=== PATIENT | male | born 1985 | race African-American/Black ===

== ENCOUNTER 2017-01-09 12:56 | Emergency (ER) | payer OTHER ==
[~2017-01-09] VITALS: Ht 172.7 cm; Wt 86.2 kg
[2017-01-09] MEDS ORDERED: EYE-STREAM OPHTH SOLUTION 120 ML BOTTLE. OD ONE (13:30)
[2017-01-09] MEDS ORDERED: TETRACAINE 0.5% OPHTH SOLUTION 4ML BOTTLE. OD ONE (13:30)
[2017-01-09] MEDS ORDERED: FLUORESCEIN OPHTH TEST STRIP. OD ONE (13:30)
[2017-01-09 13:33] VITALS: BP 116/57
[2017-01-09] MEDS ORDERED: OFLO5DRO4 OD (13:38)
--- NOTE | 2017-01-09 13:39 | PHYS DOC ---
Past Medical History Past Medical History: Seizure, Unknown Additional Past Medical Histor: blind in the right eye Past Surgical History: Other Additional Past Surgical Histo: PT IS UNABLE TO RESPOND Adult General Chief Complaint Chief Complaint: FOREIGN BODY/EYES HPI HPI Patient is a 31 year old male sitting emergency department stating that for the last 4-5 days he felt as though he has something in his right eye. He states that he's been rubbing it in has had no foreign body removed from what he knows. 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 He states it was a breast affect. Patient does have haziness noted over the lower part of the eye. Patient states that he normally puts drops in the home. Patient notes unsure of his last tetanus immunization. Review of Systems Review of Systems Constitutional: Denies fever or chills [] Eyes: Denies change in visual acuity, redness, C/o right eye pain HENT: Denies nasal congestion or sore throat [] Respiratory: Denies cough or shortness of breath [] Cardiovascular: No additional information not addressed in HPI [] GI: Denies abdominal pain, nausea, vomiting, bloody stools or diarrhea [] : Denies dysuria or hematuria [] Musculoskeletal: Denies back pain or joint pain [] Integument: Denies rash or skin lesions [] Neurologic: Denies headache, focal weakness or sensory changes [] Endocrine: Denies polyuria or polydipsia [] Current Medications Current Medications Current Medications Medications (Trade) Dose Ordered Sig/Reza Start Time Stop Time Status Last Admin Dose Admin Balanced Salt Solution (Eye-Stream) 120 ml 1X ONCE 01/09/17 13:30 01/09/17 13:31 DC 01/09/17 13:29 120 ML Fluorescein Sodium (Ful-Sindhu) 1 strip 1X ONCE 01/09/17 13:30 01/09/17 13:31 DC 01/09/17 13:29 1 STRIP Tetracaine HCl (Tetracaine) 1 drop 1X ONCE 01/09/17 13:30 01/09/17 13:31 DC 01/09/17 13:29 1 DROP Allergies Allergies Allergies Coded Allergies Type Severity Reaction Last Updated Verified No Known Drug Allergies 10/10/15 No Physical Exam Physical Exam Constitutional: Well developed, well nourished, no acute distress, non-toxic appearance. [] HENT: Normocephalic, atraumatic, bilateral external ears normal, oropharynx moist, no oral exudates, nose normal. [] Eyes: Right eye appears to have fluffiness around the lower part of the eye. Unable to visualize the pupil. Patient with redness noted in the conjunctivae no drainage or discharge noted from the eye. Neck: Normal range of motion, no tenderness, supple, no stridor. [] Cardiovascular:Heart rate regular rhythm, no murmur [] Lungs & Thorax: Bilateral breath sounds clear to auscultation [] Skin: Warm, dry, no erythema, no rash. [] Back: No tenderness Extremities: No tenderness, no cyanosis, no clubbing, ROM intact, no edema. [] Neurologic: Alert and oriented X 3, normal motor function, normal sensory function, no focal deficits noted. [] Psychologic: Affect normal, judgement normal, mood normal. [] EKG EKG [] Radiology/Procedures Radiology/Procedures [] Course & Med Decision Making Course & Med Decision Making Pertinent Labs and Imaging studies reviewed. (See chart for details) Tetracaine was placed in the right eye, with fluorescein uptake noted at the 1: 00 area. Patient will be placed on ofloxacin. Patient will be encouraged to follow-up with ophthalmology on Tuesday. Signs and symptoms to return back to emergency department been provided. Recommended Tylenol or ibuprofen for pain and discomfort. Patient agrees with discharge instructions treatment regimens and follow-up recommendations. [] Dragon Disclaimer Dragon Disclaimer This electronic medical record was generated, in whole or in part, using a voice recognition dictation system. Departure Departure Impression: Primary Impression: Corneal abrasion, right Disposition: HOME, SELF-CARE Condition: STABLE Referrals: NO PCP (PCP) RADHA PIÑA MD Patient Instructions: Eye - Corneal Abrasion, [id number] Additional Instructions: Your being treated for corneal abrasion on your right eye. Medication as prescribed. Tylenol or ibuprofen for pain and discomfort. Warm moist packs to the right eye as needed. 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 Return back to emergency prior signs symptoms of become worse. Scripts Ofloxacin (OFLOXACIN) 10 Ml Drops 1 DROP OD QID, #5 ML Prov: ANNAMARIA JIN APRN 01/09/17 ANNAMARIA JIN APRN January 09, 2017 13:38
[2017-01-09] MEDS ORDERED: DIPHTH,PERTUSS(ACELL),TET TOX 0.5 ML DISP.SYRIN. VAX IM ONE (13:45)
== END 2017-01-09 13:49 | disposition home or self-care (01) ==
LOC: ER 12:56
DX: S05.01XA Injury of conjunctiva and corneal abrasion without foreign body, right eye, initial encounter (principal); H54.8 Legal blindness, as defined in USA; X58.XXXA Exposure to other specified factors, initial encounter; Y93.89 Activity, other specified; Y92.89 Other specified places as the place of occurrence of the external cause; Y99.8 Other external cause status
CPT/HCPCS: 90471; 90715; 99284-25

== ENCOUNTER 2018-06-03 21:47 | Emergency (ER) | payer SELFPAY ==
[~2018-06-03] VITALS: Ht 172.7 cm; Wt 86.2 kg
[~2018-06-03 21:47] MED LIST: OFLO5DRO4 OD
[2018-06-03] MEDS ORDERED: HYDROcodone/APAP 5/325MG 1 TAB TABLET PO ONE (22:15)
[2018-06-03] MEDS ORDERED: CYCLOBENZAPRINE 10 MG TABLET. PO ONE (22:15)
[2018-06-03] MEDS ORDERED: NAPROXEN 500 MG TABLET PO ONE (22:15)
[2018-06-03] MEDS ORDERED: CYCL10TA2 PO (23:00)
[2018-06-03] MEDS ORDERED: DICL50TA4 PO (23:00)
--- NOTE | 2018-06-03 23:00 | PHYS DOC ---
Past Medical History Past Medical History: Seizure, Unknown Additional Past Medical Histor: blind in the right eye Past Surgical History: Other Additional Past Surgical Histo: ABD Alcohol Use: Occasionally Drug Use: None Adult General Chief Complaint Chief Complaint: SHOULDER INJURY HPI HPI Patient is a 32 year old male who presents today complaining of 9 out of 10 left shoulder pain that began a week ago after he fell on his shoulder during a seizure. Patient denies any loss of consciousness. He states he has history of seizures and is on medications. Patient appears drunk and intoxicated. He has been asleep most of the time in the ED. Review of Systems Review of Systems Constitutional: Denies fever or chills [] Musculoskeletal: Left shoulder pain Integument: Denies rash or skin lesions [] Neurologic: Denies headache, focal weakness or sensory changes [] All other systems were reviewed and found to be within normal limits, except as documented in this note. Current Medications Current Medications Current Medications Medications (Trade) Dose Ordered Sig/Reza Start Time Stop Time Status Last Admin Dose Admin Acetaminophen/ Hydrocodone Bitart (Lortab 5/325) 2 tab 1X ONCE 06/03/18 22:15 06/03/18 22:16 DC 06/03/18 22:20 2 TAB Cyclobenzaprine HCl (Flexeril) 10 mg 1X ONCE 06/03/18 22:15 06/03/18 22:16 DC 06/03/18 22:19 10 MG Naproxen (Naprosyn) 500 mg 1X ONCE 06/03/18 22:15 06/03/18 22:16 DC 06/03/18 22:20 500 MG Allergies Allergies Allergies Coded Allergies Type Severity Reaction Last Updated Verified No Known Drug Allergies 10/10/15 No Physical Exam Physical Exam Constitutional: Well developed, well nourished, no acute distress, non-toxic appearance. [] Skin: Warm, dry, no erythema, no rash. [] Back: No tenderness, no CVA tenderness. [] Extremities: Left shoulder with no obvious deformity. No tenderness on palpation of the left shoulder. Full active as well as passive range of motion to the left shoulder. Adequate radial, medial, or loss of sensation to the left upper extremity. +2 left radial pulse. Cap refill less than 2 seconds and left fingers. Neurologic: Alert and oriented X 3, normal motor function, normal sensory function, no focal deficits noted. [] Psychologic: Affect normal, judgement normal, mood normal. [] Current Patient Data Vital Signs Vital Signs Date Time Temp Pulse Resp B/P (MAP) Pulse Ox O2 Delivery O2 Flow Rate FiO2 06/03/18 22:20 16 98 Room Air 06/03/18 22:05 98.1 88 144/68 (93) 98.1 EKG EKG [] Radiology/Procedures Radiology/Procedures [] Course & Med Decision Making Course & Med Decision Making Pertinent Labs and Imaging studies reviewed. (See chart for details) This is a 32-year-old male patient presented to the ED today with left shoulder pain that began a week ago after he fell on his shoulder during a seizure. Left shoulder x-rays interpreted by Dr. Montiel is negative for any acute findings. Sling provided for comfort by the ED RN, neurovascular exam intact. Ice elevation encouraged. Diclofenac for pain and cyclobenzaprine. Follow-up with orthopedic doctor provided in one week. Staff Physician Addendum: I was working in the ER during the course of this patient's visit. I was available for consultation as needed, but I was not directly involved in the care of this patient. Dragon Disclaimer Dragon Disclaimer This electronic medical record was generated, in whole or in part, using a voice recognition dictation system. Departure Departure Impression: Primary Impression: Contusion of left shoulder Additional Impressions: Seizure Fall Disposition: HOME, SELF-CARE Condition: STABLE Referrals: NO PCP (PCP) FAHAD APPLE MD follow up in one week Patient Instructions: Contusion, [id number], Fall Prevention and Home Safety , Seizure, Adult Additional Instructions: You were evaluated in the emergency room for left shoulder contusion. Ice elevate the extremity. Take the prescribed pain medicine as needed for pain. Follow-up with the provided orthopedic doctor in one week or your own doctor if pain continues. Come back to the ED at any point symptoms worsen. Scripts Cyclobenzaprine Hcl (CYCLOBENZAPRINE HCL) 10 Mg Tablet 1 TAB PO TID, #30 TAB Prov: CONRADO CASTAÑEDA APRN 06/03/18 Diclofenac Sodium (DICLOFENAC SODIUM) 50 Mg Tablet. 1 TAB PO BID, #60 TAB 1 Refill Prov: CONRADO CASTAÑEDA APRN 06/03/18 Problem Qualifiers Primary Impression: Contusion of left shoulder Encounter type: initial encounter Qualified Codes: S40.012A - Contusion of left shoulder, initial encounter Additional Impressions: Fall Encounter type: initial encounter Qualified Codes: W19.XXXA - Unspecified fall, initial encounter CONRADO CASTAEÑDA APRN Jun 03, 2018 23:00 LINK MONTIEL MD Jun 03, 2018 23:23
[2018-06-03 23:12] VITALS: BP 140/66
--- NOTE | 2018-06-04 08:23 | RAD ---
SHOULDER 2+V LEFT (AP internal and external rotation, transscapular Y) INDICATION: Trauma, fall on shoulder COMPARISON: None. FINDINGS: No acute fracture or malalignment. The joint spaces are maintained. Bony mineralization is normal for the patient's age. No significant soft tissue abnormality. No radiopaque foreign body. IMPRESSION: No acute fracture or malalignment. Electronically signed by: Hua Barillas MD (06/04/2018 8:19 AM) [facility]
== END 2018-06-03 23:20 | disposition home or self-care (01) ==
LOC: ER 21:47
DX: S40.012A Contusion of left shoulder, initial encounter (principal); R56.9 Unspecified convulsions; W18.39XA Other fall on same level, initial encounter; Y93.89 Activity, other specified; Y92.89 Other specified places as the place of occurrence of the external cause; Y99.8 Other external cause status
CPT/HCPCS: 73030; 99284

== ENCOUNTER 2020-11-10 09:28 | Emergency (ER) | payer OTHER ==
[~2020-11-10] VITALS: Ht 172.7 cm; Wt 82.0 kg
[~2020-11-10 09:28] MED LIST changes: +CYCL10TA2 PO; +DICL50TA4 PO
[2020-11-10 09:35] VITALS: BP 125/76
--- NOTE | 2020-11-10 10:13 | ED.ADGEN ---
Past Medical History Past Medical History: Seizure, Unknown Additional Past Medical Histor: blind in the right eye Past Surgical History: Other Additional Past Surgical Histo: "ABDOMINAL SURGERY" Smoking Status: Current Every Day Smoker Alcohol Use: Occasionally Drug Use: None General Adult EDM: Chief Complaint: SEIZURE HPI: HPI: Patient is a 35-year-old male who presents to the emergency room after having a seizure at work. Patient states that he does not take his medications because he does not trust his medication. He cannot get on disability for his seizures so he started a new job today. He states he has a seizure about once a month. He denies any complaints. Patient would like to leave. Review of Systems: Review of Systems: Complete ROS is negative unless otherwise documented in HPI Allergies: Allergies: Allergies Coded Allergies Type Severity Reaction Last Updated Verified No Known Drug Allergies 10/10/15 No Physical Exam: PE: General: Awake, alert, NAD. Well Nourished, well hydrated. Cooperative HEENT: Atraumatic, airway patent, moist oral mucosa Neck: Supple, trachea midline Respiratory: CTA bilaterally, normal effort, no wheezing/crackles CV: RRR, no murmur, cap refill <2 GI: Soft, nondistended, nontender, no masses MSK: No obvious deformities Skin: Warm, dry, intact Neuro: A&O x3, speech NL, 5/5 strength in BUE/BLE distally and proximally, CN 2- 12 intact, cerebellar testing normal Psych: Normal affect, normal mood, not suicidal or homicidal Current Patient Data: Vital Signs: Vital Signs Date Time Temp Pulse Resp B/P (MAP) Pulse Ox O2 Delivery O2 Flow Rate FiO2 11/10/20 09:35 98.2 86 18 125/76 (92) 96 Room Air 98.2 EKG: EKG: [] Heart Score: C/O Chest Pain: N/A Risk Factors: Risk Factors: DM, Current or recent (<one month) smoker, HTN, HLP, family history of CAD, obesity. Risk Scores: Score 0 - 3: 2.5% MACE over next 6 weeks - Discharge Home Score 4 - 6: 20.3% MACE over next 6 weeks - Admit for Clinical Observation Score 7 - 10: 72.7% MACE over next 6 weeks - Early Invasive Strategies Radiology/Procedures: Radiology/Procedures: [] Course & Med Decision Making: Course & Med Decision Making Pertinent Labs and Imaging studies reviewed. (See chart for details) Patient presents to the ED after having a seizure at home. Patient has a h/o seizures. Patient has returned to their baseline and has a normal neurologic exam. Patient has not been compliant with their home regimen. Patient refuses to take any seizure medications. He would like to sign out AMA. Patient has requested to leave AGAINST MEDICAL ADVICE. I have discussed the benefits of staying for a full work up and the patient would like to leave. I discussed the risks of leaving including but not limited to , permenant end-organ damage, worsening of condition and patient stated understanding. Patient signed out against medical advice. Dragon Disclaimer: Dragon Disclaimer: This electronic medical record was generated, in whole or in part, using a voice recognition dictation system. Departure Departure Impression: Primary Impression: Seizure Disposition: 07 AMA/ELOPED/LWBS Condition: STABLE Referrals: NO PCP (PCP) LATOYA ANDERSON MD Nov 10, 2020 10:13
== END 2020-11-10 10:05 | disposition left against medical advice (07) ==
LOC: ER 09:28
DX: R56.9 Unspecified convulsions (principal); F17.200 Nicotine dependence, unspecified, uncomplicated; Z98.890 Other specified postprocedural states
CPT/HCPCS: 99284